=== PATIENT | female | born 1960 | race Caucasian/White ===

== ENCOUNTER 2022-05-08 09:00 | Outpatient (RCR) | payer MEDICARE, OTHER | END 2022-05-10 | LOC: PT 09:00 | PROVIDERS: ATTEND Physical Medicine & Rehabilitation | DX: R26.9 Unspecified abnormalities of gait and mobility (principal) | CPT/HCPCS: 92523 ==

== ENCOUNTER 2022-06-09 09:00 | Outpatient (RCR) | payer MEDICARE, OTHER | END 2022-06-10 | LOC: PT 09:00 | PROVIDERS: ATTEND Physical Medicine & Rehabilitation | DX: I69.351 Hemiplegia and hemiparesis following cerebral infarction affecting right dominant side (principal); R26.9 Unspecified abnormalities of gait and mobility ==

== ENCOUNTER 2022-07-09 09:00 | Outpatient (RCR) | payer MEDICARE, OTHER | END 2022-07-10 | LOC: PT 09:00 | PROVIDERS: ATTEND Physical Medicine & Rehabilitation | DX: I63.40 Cerebral infarction due to embolism of unspecified cerebral artery (principal); M62.81 Muscle weakness (generalized); R53.83 Other fatigue ==

== ENCOUNTER 2022-07-20 09:00 | Outpatient (RCR) | payer MEDICARE, OTHER | END 2022-08-10 | LOC: PT 09:00 | PROVIDERS: ATTEND Physical Medicine & Rehabilitation | DX: I63.40 Cerebral infarction due to embolism of unspecified cerebral artery (principal); M62.81 Muscle weakness (generalized); R53.83 Other fatigue ==